=== PATIENT | male | born 2000 | race Caucasian/White ===

== ENCOUNTER 2023-09-13 19:46 | Emergency (ER) | payer OTHER ==
[~2023-09-13] VITALS: Ht 172.7 cm; Wt 89.8 kg
[2023-09-13 20:49] LABS: HEMATOCRIT 38.1 % (39.0-48.0); HEMOGLOBIN 13.4 g/dL (13-16.00); MEAN CELL VOLUME 82.9 fL (80.0-100.00); MEAN CORPUSCULAR HEMOGLOBIN 29.2 pg (27.00-32.0); MEAN CORPUSCULAR HGB CONC 35.3 g/dl (32.0-36.0); PLATELET COUNT 248 K/uL (150-450); RED CELL DISTRIBUTION WIDTH 12.4 % (11.5-14.5)
[2023-09-13 20:57] LABS: CALCIUM 9.6 mg/dL (8.5-10.1); CREATININE SERUM 1.07 mg/dL (0.70-1.30); GFR 87.24; POTASSIUM 3.68 mEq/L (3.5-5.1)
== END 2023-09-13 22:16 | disposition home or self-care (01) ==
LOC: ER 19:46
PROVIDERS: General Practice
DX: J06.9 Acute upper respiratory infection, unspecified (principal); Z20.822 Contact with and (suspected) exposure to COVID-19